=== PATIENT | female | born 1980 ===

== ENCOUNTER 2017-01-22 20:33 | Emergency (ER) | payer OTHER ==
[2017-01-22 21:11] VITALS: BP 124/86; PULSE 85; RESP 18; TEMP 98.4; O2SAT 100
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
--- NOTE | 2017-01-23 08:37 | RAD ---
PROCEDURE: Left Knee Radiographs. HISTORY: COMPARISON: None available. FINDINGS: BONES: No acute displaced fracture. JOINTS: No dislocation. JOINT EFFUSION: No significant joint effusion. OTHER FINDINGS: None. IMPRESSION: No acute displaced fracture, dislocation, or significant joint effusion identified. If symptoms persist, or if there is continued clinical concern, x-ray follow-up in 7-10 days should be considered.
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
== END 2017-01-22 22:33 | disposition home or self-care (01) ==
LOC: C.ER 20:33
DX: S00.83XA Contusion of other part of head, initial encounter (principal); S80.02XA Contusion of left knee, initial encounter; S39.012A Strain of muscle, fascia and tendon of lower back, initial encounter; V78.6XXA Passenger on bus injured in noncollision transport accident in traffic accident, initial encounter
CPT/HCPCS: 70110; 72100; 73562; 96372; 99284; J1885

== ENCOUNTER 2017-02-02 19:00 | Emergency (ER) | payer SELFPAY ==
[2017-02-02 20:03] VITALS: RESP 18
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
[2017-02-02 20:30] LABS: RBC URINE 1352 /hpf (0-3); URINE BACTERIA OCC (<OCC); URINE BILIRUBIN NEGATIVE (NEGATIVE); URINE BLOOD 3+ (NEGATIVE); URINE COLOR Yellow (YELLOW); URINE GLUCOSE (UA) NORMAL (Normal); URINE KETONE NEGATIVE (NEGATIVE); URINE LEUKOCYTE ESTERASE TRACE Leu/uL (Negative); URINE PROTEIN NEGATIVE (NEGATIVE); URINE UROBILINOGEN NORMAL mg/dL (0.2-1.0); WBC URINE 4 /hpf (0-5)
[2017-02-02] MEDS ORDERED: Sodium Chloride 0.9% 1,000 ML IV ONE (20:44)
[2017-02-02 21:20] LABS: BASO % 0.3 % (0.0-2.0); EOS # 0.1 K/uL (0.0-0.7); EOS % 0.7 % (0.0-4.0); HEMATOCRIT 41.5 % (34.0-47.0); LYMPH # 5.2 K/uL (1.0-4.3); MEAN CELL VOLUME 89.3 fL (81.0-99.0); MEAN CORPUSCULAR HGB CONC 32.5 g/dL (33.0-37.0); MEAN PLATELET VOLUME 9.2 fL (7.2-11.7); MONO # 1.4 K/uL (0.0-0.8); MONO % 9.5 % (0.0-10.0); RED CELL DISTRIBUTION WIDTH 13.3 % (11.5-14.5); WHITE BLOOD COUNT 14.9 K/uL (4.8-10.8)
[2017-02-02 21:29] LABS: CHLORIDE 102 mmol/L (98-107)
[2017-02-02 21:30] LABS: POTASSIUM 4.1 mmol/L (3.6-5.2); SODIUM 140 mmol/L (132-148)
[2017-02-02 21:32] LABS: ALB/GLOB RATIO 1.2 (1.0-2.1); ALKALINE PHOSPHATASE 79 U/L (38-126); ALT/SGPT 27 U/L (9-52); AST/SGOT 24 U/L (14-36); BILIRUBIN,TOTAL 0.5 mg/dL (0.2-1.3); BLOOD UREA NITROGEN 12 mg/dL (7-17); CARBON DIOXIDE 25 mmol/L (22-30); GFR AFRICAN-AMERICAN > 60; TOTAL PROTEIN 7.4 g/dL (6.3-8.3)
[2017-02-02 21:33] LABS: CALCIUM 9.2 mg/dl (8.6-10.4); GLUCOSE,RANDOM 117 mg/dL (65-105)
[2017-02-02 22:20] VITALS: BP 119/72; PULSE 89; TEMP 97.9
[2017-02-02 22:48] VITALS: O2SAT 99
--- NOTE | 2017-02-03 07:32 | CT ---
PROCEDURE: CT Abdomen and Pelvis without intravenous contrast HISTORY: Right flank pain COMPARISON: None. TECHNIQUE: Helical CT of the abdomen and pelvis was performed without oral or intravenous contrast as per referring physician request. Physical history of right flank pain. Contrast Dose: 0 cc Radiation dose: Total exam DLP = 325 mGy-cm. This CT exam was performed using one or more of the following dose reduction techniques: Automated exposure control, adjustment of the mA and/or kV according to patient size, and/or use of iterative reconstruction technique. FINDINGS: LOWER THORAX: Unremarkable. LIVER: Unremarkable. No gross lesion or ductal dilatation. GALLBLADDER AND BILE DUCTS: Unremarkable. PANCREAS: Unremarkable. No gross lesion or ductal dilatation. SPLEEN: Unremarkable. ADRENALS: Unremarkable. No mass. KIDNEYS AND URETERS: Unremarkable. No radiodense urolithiasis or hydronephrosis bilaterally. No perinephric reaction or definitive lesion is seen either kidney in this unenhanced CT examination. VASCULATURE: Unremarkable. No aortic aneurysm. BOWEL: The stomach is distended with retained food there is moderate fecal loading throughout the colon. Small bowel appears unremarkable as imaged. No obstruction. No gross mural thickening. APPENDIX: Unremarkable. Normal appendix. PERITONEUM: Unremarkable. No free fluid. No free air. LYMPH NODES: Unremarkable. No enlarged lymph nodes. BLADDER: Unremarkable. REPRODUCTIVE: Unremarkable. BONES: A small bone island is identified at the right innominate bone cephalad to the right acetabulum. OTHER FINDINGS: None. IMPRESSION: 1. No radiodense urolithiasis, obstructive uropathy or perinephric reaction bilaterally. 2. Normal-appearing appendix. 3. If further clinical concern for abdomen or pelvis pathology remains than follow-up contrast abdomen and pelvis CT is advised.
== END 2017-02-02 23:02 | disposition home or self-care (01) ==
LOC: C.ER 19:00
DX: M54.16 Radiculopathy, lumbar region (principal); R31.9 Hematuria, unspecified
CPT/HCPCS: 74176; 80053; 81001; 84703; 85025; 87086; 96361; 96374; 96375; 99284; J1885; J2405; J7040

== ENCOUNTER 2017-11-18 15:54 | Emergency (ER) | payer OTHER ==
[2017-11-18 16:05] VITALS: BP 131/81; PULSE 116; RESP 18; TEMP 99.3; O2SAT 100
--- NOTE | 2017-11-18 16:28 | C.PDOC ---
History Of Present Illness 37 y/o female with history of seafood allergy presents to ED for evaluation of itching rash to chest, arms and groin area for 2 days. Patient states she has not had contact with seafood and denies sob, wheezing, fever, chills or any other complaints at this time. Time Seen by Provider: 11/18/17 16:05 Chief Complaint (Nursing): Abnormal Skin Integrity History Per: Patient History/Exam Limitations: no limitations Onset/Duration Of Symptoms: Days Current Symptoms Are (Timing): Still Present Past Medical History Vital Signs: Last Vital Signs Temp 99.3 F 11/18/17 16:02 Pulse 116 H 11/18/17 16:02 Resp 18 11/18/17 16:02 BP 131/81 11/18/17 16:02 Pulse Ox 100 11/18/17 16:33 - Medical History PMH: No Chronic Diseases Surgical History: No Surg Hx Family History: States: No Known Family Hx - Social History Hx Alcohol Use: Yes Hx Substance Use: No Review Of Systems Constitutional: Negative for: Fever, Chills Cardiovascular: Negative for: Chest Pain, Palpitations Respiratory: Negative for: Shortness of Breath Skin: Positive for: Rash Physical Exam - Physical Exam Appears: Non-toxic, No Acute Distress Skin: Warm, Dry, Rash (scattered macular erythematous rash to right anterior chest wall, right elbow and suprapubic area, no edmea, no proximal streaking, no flactulance.) Head: Normacephalic Eye(s): bilateral: PERRL Nose: No Flaring Oral Mucosa: Moist, No Drooling Tongue: No Swelling Lips: No Swelling Throat: No Erythema, No Exudate, No Drooling, Other (uvula midline, no edema.) Neck: Supple Cardiovascular: Rhythm Regular Respiratory: No Decreased Breath Sounds, No Accessory Muscle Use, No Rales, No Rhonchi, No Stridor, No Wheezing Gastrointestinal/Abdominal: Soft, No Tenderness, No Distention, No Guarding, No Rebound Extremity: No Deformity, No Swelling Neurological/Psych: Oriented x3, Normal Speech, Normal Cognition ED Course And Treatment O2 Sat by Pulse Oximetry: 100 (RA) Pulse Ox Interpretation: Normal Progress Note: On re-evaluation, pt is afebrile, hemodynamicaly stable. Non- toxic. Tolerate po well in ED. PulseOx 100% RA. neck: Supple, (-) midline tenderness, (-) JVD. Lungs: CTA B/L, BS equal B/L. Abd: benign. Skin: erythematous lacula scattered rash, no evidence of cellulitis. Pt advised. ref. to f/u with PMD, Derm in 2-3 days for re-eval. return to ED if any worsening or new changes. Disposition Counseled Patient/Family Regarding: Diagnosis, Need For Followup, Rx Given - Disposition Referrals: [facility] [Outside] Disposition Time: 16:36 Condition: STABLE Additional Instructions: Encourage fluids Avoid food and drink possible cause allergy take medication as prescribed Follow up with PMD in 2-3 days for re-evaluation. return to ED if any worsening or new changes. Prescriptions: DiphenhydrAMINE [Benadryl] 25 mg PO BID #10 cap Famotidine [Pepcid] 20 mg PO BID #10 tab Prednisone [Deltasone] 40 mg PO DAILY #6 tablet Instructions: Food Allergy Forms: [employer] (Romanian) Print Language: ANDORRAN - Clinical Impression Clinical Impression: Rash, Food allergy - PA / ROBOTICS TECHNOLOGIST / Resident Statement MD/DO has reviewed & agrees with the documentation as recorded. - Scribe Statement The provider has reviewed the documentation as recorded by the Casi Carranza All medical record entries made by the Casi were at my direction and personally dictated by me. I have reviewed the chart and agree that the record accurately reflects my personal performance of the history, physical exam, medical decision making, and the department course for this patient. I have also personally directed, reviewed, and agree with the discharge instructions and disposition.
== END 2017-11-18 16:47 | disposition home or self-care (01) ==
LOC: C.ER 15:54
DX: R21 Rash and other nonspecific skin eruption (principal); L27.2 Dermatitis due to ingested food